=== PATIENT | male | born 1980 | race Two or more races ===

== ENCOUNTER 2021-03-05 15:37 | Emergency (ER) | payer SELFPAY ==
--- NOTE | 2021-03-05 17:45 | EDM.PDOC ---
ED HPI GENERAL MEDICAL PROBLEM - General Chief Complaint: Chest Pain Stated Complaint: [facility] Time Seen by Provider: 03/05/21 16:59 - History of Present Illness INITIAL COMMENTS - FREE TEXT/NARRATIVE: 40-year-old male comes to the emergency room by EMS after drinking an energy drink developing palpitations and chest discomfort. Shortly before the patient had problems he drank a 5-hour energy drink that he d eveloped some rapid bouncing sensation in his chest. 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 He was doing much better when EMS arrived and was pretty much symptom-free upon arrival here. Because of delays in the department the patient was able to be observed for some time and remained symptom-free. Patient does not have any history of heart problems no significant family history. He does not use caffeine on a regular basis he does smoke a little bit. - Related Data Allergies Allergy/AdvReac Type Severity Reaction Status Date / Time No Known Allergies Allergy Verified 03/05/21 15:46 Home Meds: Home Meds . [No Known Home Meds] 03/05/21 [History] Social & Family History - Tobacco Use Tobacco Use Status *Q: Never Tobacco User ED ROS GENERAL - Review of Systems Review Of Systems: See Below Constitutional: Reports: No Symptoms HEENT: Reports: No Symptoms Respiratory: Reports: No Symptoms Cardiovascular: Reports: Palpitations Endocrine: Reports: No Symptoms GI/Abdominal: Reports: No Symptoms : Reports: No Symptoms Musculoskeletal: Reports: No Symptoms Skin: Reports: No Symptoms Neurological: Reports: No Symptoms ED EXAM, GENERAL - Physical Exam Exam: See Below Exam Limited By: No Limitations General Appearance: Alert, No Apparent Distress Head: Atraumatic, Normocephalic Neck: Normal Inspection, Supple, Non-Tender, Full Range of Motion. No: Lymphadenopathy (L), Lymphadenopathy (R) Respiratory/Chest: No Respiratory Distress, Lungs Clear, Normal Breath Sounds Cardiovascular: Normal Peripheral Pulses, Regular Rate, Rhythm, No Edema GI/Abdominal: Normal Bowel Sounds, Soft, Non-Tender Back Exam: Normal Inspection. No: CVA Tenderness (L), CVA Tenderness (R) Extremities: Normal Inspection, Normal Range of Motion, Non-Tender Neurological: Alert, Oriented, Normal Cognition #1 Interpretation EKG Date: 03/05/21 Rhythm: NSR Rate (Beats/Min): 55 [place]: Normal P-Wave: Present QRS: Normal ST-T: Normal QT: Normal Comparison: NA - No Prior EKG EKG Interpretation Comments: Normal EKG minimal sinus variation noted Course - Vital Signs Last Recorded V/S: Last Vital Signs Temp 36.7 C 03/05/21 15:44 Pulse 64 03/05/21 15:44 Resp 16 03/05/21 15:44 BP 132/85 03/05/21 15:44 Pulse Ox 97 03/05/21 15:44 - Re-Assessments/Exams Free Text/Narrative Re-Assessment/Exam: 03/05/21 17:42 I discussed the situation with the patient and the interpretation of his EKG the patient is assured by this. He has been absolutely symptom-free upon arrival to the emergency room from EMS and has remained that way ever since. He would like to be discharged at this time. We did discuss laboratory evaluation and further investigation but he would like to be discharged at this time. Departure - Departure Time of Disposition: 17:43 Disposition: Home, Self-Care 01 Clinical Impression: Use of energy drinks, Heart palpitations - Discharge Information Forms: ED Department Discharge Additional Instructions: Return to the emergency room with any questions problems or concerning symptoms. If you are traveling find the closest emergency room if needed. Tonight stay local and return with any questions or problems. Do not use energy drinks! Drink plenty of fluids avoid soda pop. Do not smoke. Every couple of hours get out of your truck and walk around it a couple of times. Follow-up with your regular healthcare provider when you get back home if needed. Sepsis Event Note (ED) - Evaluation Sepsis Screening Result: No Definite Risk - Focused Exam Vital Signs: Vital Signs Temp Pulse Resp BP Pulse Ox 03/05/21 15:44 36.7 C 64 16 132/85 97
== END 2021-03-05 18:27 | disposition home or self-care (01) ==
LOC: JD.ED 15:37
DX: R00.2 Palpitations (principal)
CPT/HCPCS: 93005; 99285-25